=== PATIENT | female | born 1995 | race Two or more races ===

== ENCOUNTER → 2025-02-22 | Outpatient (REF) | payer OTHER | LOC: M PLALAB 15:29 | PROVIDERS: ATTEND Student in an Organized Health Care Education/Training Program | DX: Z34.80 Encounter for supervision of other normal pregnancy, unspecified trimester (principal) ==

== ENCOUNTER → 2025-02-22 | Outpatient (CLI) | payer OTHER ==
[2025-02-22 17:29] LABS: PLATELET COUNT, AUTOMATED 222 10^3/uL (150-450)
[2025-02-22 17:55] LABS: HIV 1&2 SCREEN NEGATIVE (NEGATIVE)
[2025-02-22 18:10] LABS: HEPATITIS C VIRUS ABY INDEX < 0.02 INDEX (<0.8)
[2025-02-22 18:30] LABS: Trichomonas vaginalis (AMP) NOT DETECTED (NEGATIVE)
[2025-02-22 18:54] LABS: GC DNA AMPLIFICATION NEGATIVE (NEGATIVE)
== END ==
LOC: M PLALAB 15:36
PROVIDERS: ATTEND Student in an Organized Health Care Education/Training Program
DX: Z34.80 Encounter for supervision of other normal pregnancy, unspecified trimester (principal)